=== PATIENT | male | born 1985 | race Two or more races ===

== ENCOUNTER 2018-11-27 12:25 | Emergency (ER) | payer SELFPAY ==
[~2018-11-27] VITALS: Ht 177.8 cm; Wt 97.5 kg
--- NOTE | 2018-11-27 13:42 | RAD ---
ELBOW RIGHT 3V, WRIST 3V RIGHT History: Patient fell down stairs. Pain. FINDINGS: No evidence of acute fracture. No bone destruction. Joint spaces and alignment are intact. No significant soft tissue plane distortion. IMPRESSION: No definite acute fracture or dislocation 3 view right elbow There is widening of the radiohumeral joint space. There is also mild lateral subluxation of the radial head relative to the humerus. No definite acute fracture is seen. True lateral film was not obtained, difficult to evaluate for joint effusion. IMPRESSION: Findings of subluxation or instability at the radiohumeral joint, could indicate ligamentous or tendinous injury. No definite acute fracture. MR could be of benefit for further evaluation. Electronically signed by: Sean Petersen MD (11/27/2018 1:39 PM) [facility]
[2018-11-27] MEDS ORDERED: IV NORMAL SALINE 1000ML BAG 1,000 ML IV ONE (14:30)
[2018-11-27] MEDS ORDERED: ONDANSETRON PF 4 MG/2 ML VIAL. IV ONE (14:30)
[2018-11-27] MEDS ORDERED: fentaNYL PF VIAL 100 MCG/2 ML VIAL IV ONE (14:30)
[2018-11-27] MEDS ORDERED: PROPOFOL 10 MG/ML (20ML) VIAL. IV ONE (14:30)
[2018-11-27 14:47] VITALS: BP 137/76
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
--- NOTE | 2018-11-27 15:38 | RAD ---
Three-view right elbow HISTORY: Post reduction. COMPARISON: Study of 1:12 PM. FINDINGS: Alignment appears to be anatomic or near anatomic on this examination. Overlying splint is in place. True lateral view not obtained. Difficult to evaluate for fracture given the fixed flexion of the elbow. IMPRESSION: Previously seen radiohumeral subluxation appears to have been reduced. Electronically signed by: Sean Petersen MD (11/27/2018 3:35 PM) [facility]
--- NOTE | 2018-11-27 16:41 | RAD ---
CT UPPR EXTREMTY WO CONTRST RT Indication: right elbow injury, dislocation, need ct scan of right elbow.
trauma, unable to straighten arm Exposure: One or more of the following individualized dose reduction techniques were utilized for this examination: 1. Automated exposure control 2. Adjustment of the mA and/or kV according to patient size 3. Use of iterative reconstruction technique. Comparison: Radiographs of the same day The elbow is in a fixed flexion, resulting in artifact and image degradation. No evidence of dislocation. No evidence of an acute fracture. There does appear to be a joint effusion. IMPRESSION: Image degradation due to elbow position. No definite acute fracture. No dislocation. Electronically signed by: Sean Petersen MD (11/27/2018 4:39 PM) [facility]
[2018-11-27] MEDS ORDERED: HYDR-3164 PO (18:08)
[2018-11-27 18:30] VITALS: BP 124/69
== END 2018-11-27 19:03 | disposition home or self-care (01) ==
LOC: ER 12:25
DX: S53.144A Lateral dislocation of right ulnohumeral joint, initial encounter (principal); W01.0XXA Fall on same level from slipping, tripping and stumbling without subsequent striking against object, initial encounter; Y93.02 Activity, running; Y92.89 Other specified places as the place of occurrence of the external cause; Y99.8 Other external cause status
CPT/HCPCS: 24600; 73080; 73110; 73200; 96374; 99285; J2405; J2704; J3010; J7030